=== PATIENT | female | born 1935 | race Caucasian/White ===

== ENCOUNTER 2017-08-21 18:26 | Emergency (ER) | payer OTHER ==
[~2017-08-21] VITALS: Ht 154.9 cm; Wt 72.0 kg
[2017-08-21] MEDS ORDERED: ONDANSETRON 2MG/ML, 2ML ONE (19:47)
[2017-08-21 19:59] LABS: HEMATOCRIT 37.9 % (34.6-47.8); HEMOGLOBIN 12.5 g/dL (11.7-16.4); WHITE BLOOD COUNT 4.6 x10^3/uL (3.4-10)
[2017-08-21] MEDS ORDERED: ONDANSETRON 2MG/ML, 2ML IVPush ONE (20:00)
[2017-08-21 20:10] LABS: ASPARTATE AMINO TRANSFERASE 14 U/L (15-37); BLOOD UREA NITROGEN 9 mg/dL (7-18)
[2017-08-21 20:19] LABS: IS PT STATUS REG ER OR PRE ER? YES
[2017-08-21] MEDS ORDERED: HYDROmorphone 1 MG/ML, 1ML IM ONE (20:30)
[2017-08-21] MEDS ORDERED: SODIUM CHLORIDE 0.9%, 500ML IVBOLUS ONE (21:30)
[2017-08-22 00:31] VITALS: BP 117/56
[2017-08-22] MEDS ORDERED: OMNIPAQUE 350 MG/ML, 100ML BOTTLE ONE (01:18)
== END 2017-08-22 00:33 | disposition home or self-care (01) ==
LOC: EDBD 18:26 → ED 23:34
DX: K52.9 Noninfective gastroenteritis and colitis, unspecified (principal); Z87.891 Personal history of nicotine dependence
CPT/HCPCS: 36415; 74174; 74176; 80053; 81001; 83605; 83690; 84484; 85025; 87086; 93005; 96361; 96374; 99285; J2405; J7040; Q9967